=== PATIENT | male | born 1965 | race Caucasian/White ===

== ENCOUNTER → 2016-10-22 | Outpatient (CLI) | payer OTHER ==
--- NOTE | 2016-10-22 20:01 | DIAGNOSTIC IMAGING REPORT ---
PROCEDURE: XR ELBOW 3 OR 4 VIEWS - LEFT INDICATION: BURSITIS TECHNIQUE: Four views. COMPARISON: None. FINDINGS: There is mild soft tissue swelling over the olecranon process. There is a small degenerative osteophyte at the tip of the olecranon. Osseous structures and joint spaces are otherwise normal. No evidence of an effusion. IMPRESSION: 1. Mild soft tissue swelling over the olecranon process consistent with soft tissue swelling or olecranon bursal fluid. 2. Associated of small degenerative osteophyte of the olecranon process
== END ==
LOC: XR SRH 17:40
DX: M25.722 Osteophyte, left elbow (principal); M79.89 Other specified soft tissue disorders